=== PATIENT | female | born 1960 | race Caucasian/White ===

== ENCOUNTER 2020-11-12 06:59 | Day surgery (SDC) | payer BC ==
[~2020-11-12] VITALS: Ht 170.2 cm; Wt 81.6 kg
[~2020-11-12 06:59] MED LIST: BAYER CHEWABLE81 MG PO; CELEXA10 MG PO; PREVACID15 MG PO; VOLTAREN25 MG
[2020-11-12 07:26] LABS: BASOPHILS 0.8 % (0-2); EOSINOPHILS 1.3 % (0-7); HEMATOCRIT 42.2 % (36.0-48.0); HEMOGLOBIN 14.3 g/dL (12-16); LYMPHOCYTES 34.4 % (15-50); MCH 30.9 pg (26.0-34.0); MCHC 33.9 g/dL (31.0-37.0); MCV 91.1 fL (80.0-100.0); MEAN PLATELET VOLUME 7.2 fL (7.4-10.4); MONOCYTES 5.4 % (2-11); NEUTROPHILS 58.1 % (40-80); PLATELET COUNT 295 10x3/uL (130-400); RBC 4.63 10x6/uL (4.00-5.40); RDW 14.7 % (11.5-14.5); WBC 10.2 10x3/uL (4.8-10.8)
[2020-11-12 07:36] LABS: CALC OSMOLALITY 282 mosm/kg (275-300); CARBON DIOXIDE 22.7 mmol/L (21.0-32.0); CHLORIDE - SERUM 105 mmol/L (98-107); CREATININE - SERUM 0.7 mg/dL (0.6-1.3); GLUCOSE 141 mg/dL (74-106); POTASSIUM - SERUM 3.7 mmol/L (3.5-5.1); SODIUM 141 mmol/L (136-145); UREA NITROGEN 13 mg/dL (7-18); eGFR NON AFRICAN AMERICAN 90 mL/min (90-120)
[2020-11-12] MEDS ORDERED: ZYRTEC10 MG PO (08:11)
[2020-11-12 08:12] VITALS: BP 186/79; Ht 170.2 cm; Wt 81.6 kg
[2020-11-12] MEDS ORDERED: HYDROCODONE-AC1 EAC2 PO (15:29)
--- NOTE | 2020-11-12 17:25 | NUR ---
SUE AND THIS NURSE COMPLETED DC TEACHING TO PT AND FRIEND. VERBALIZED UNDERSTANDING. PIV REMOVED BY SAVANNAH ROGERS- CATHETER INTACT, SUE ASSISTED PT TO GET DRESSED. 1750 PT DC'D VIA WC ACCOMPANIED BY SUE TO POV WITH ALL BELONGINGS AND DC PACKET. FRIEND DRIVING.
== END 2020-11-12 17:50 | disposition home or self-care (01) ==
LOC: D.OPS 06:59
PROVIDERS: Anesthesiology; ATTEND Podiatrist Foot & Ankle Surgery
DX: M21.612 Bunion of left foot (principal); M20.12 Hallux valgus (acquired), left foot; M20.42 Other hammer toe(s) (acquired), left foot; F17.200 Nicotine dependence, unspecified, uncomplicated